=== PATIENT | male | born 1935 | race Hispanic/Latino ===

== ENCOUNTER 2018-07-20 12:50 | Inpatient (IN) | payer OTHER ==
[~2018-07-20] VITALS: Ht 170.2 cm; Wt 90.3 kg
[2018-07-20 13:22] LABS: BASOPHILS % (AUTO) 0.6 % (0.0-5.0); EOSINOPHILS % (AUTO) 1.6 % (0.0-8.0); HEMATOCRIT 23.3 % (42-54); LYMPHOCYTES % (AUTO) 7.5 % (21.0-51.0); MEAN CORPUSCULAR HEMOGLOBIN 31.3 pg (27.0-33.0); MEAN CORPUSCULAR HGB CONC 33.2 g/dL (32.0-36.0); MEAN CORPUSCULAR VOLUME 94.1 fL (79-99); NEUTROPHILS % (AUTO) 82.3 % (40.0-77.0); PLATELET COUNT (AUTO) 157 K/uL (130-400); RED BLOOD CELL COUNT(AUTO) 2.48 MIL/uL (4.50-6.20); RED CELL DISTRIBUTION WIDTH 15.5 % (11.0-15.5); WHITE BLOOD COUNT (AUTO) 11.5 K/uL (4.8-10.8)
[2018-07-20 13:41] LABS: POTASSIUM 4.6 mmol/L (3.5-5.1)
[2018-07-20 13:42] LABS: ALBUMIN 2.6 g/dL (3.5-5.0); BILIRUBIN,TOTAL 0.4 mg/dL (0.2-1.0); CREATININE 2.1 mg/dL (0.5-1.5); TOTAL PROTEIN, SERUM 7.1 g/dL (6.0-8.3)
[2018-07-20 13:52] LABS: INR 1.05 (0.85-1.15); PARTIAL THROMBOPLASTIN TIME 33.4 SEC (26.3-35.5)
[2018-07-20 14:02] LABS: B-TYPE NATRIURETIC PEPTIDE 1520 pg/mL (0-100)
[2018-07-20] MEDS ORDERED: MORPHINE SULFATE 2 MG/ML 1ML SYG IVP PRN (14:45)
[2018-07-20] MEDS ORDERED: NITROGLYCERIN 0.2 MG/HR PATCH TD SCH (14:45)
[2018-07-20] MEDS ORDERED: HYDROCODONE/ACETAMINOPHEN 5/325 MG TAB PO PRN (15:30)
[2018-07-20] MEDS ORDERED: ACETAMINOPHEN 325 MG TAB PO PRN (16:00)
[2018-07-20] MEDS ORDERED: FUROSEMIDE 10 MG/ML 2ML VIAL IV SCH (16:00)
[2018-07-20] MEDS ORDERED: ONDANSETRON HCL MDV 20ML 2 MG/ML VIAL IVP PRN (16:00)
[2018-07-20] MEDS ORDERED: GUAIFENESIN-DM 200/20 MG 10 ML PO SCH (16:00)
[2018-07-20] MEDS: IPRATROPIUM/ALBUTEROL SULFATE 3 ML SOLUTION IH SCH ×2 (17:26→23:14)
[2018-07-20 18:45] VITALS: BP 109/62
[2018-07-20 19:00] VITALS: BP 109/62
[2018-07-20 20:00] VITALS: BP 111/53
[2018-07-20 21:00] VITALS: BP 117/59
[2018-07-20 22:00] VITALS: BP 125/53
[2018-07-20 23:00] VITALS: BP 108/57
[2018-07-20] MEDS ORDERED: METOPROLOL TARTRATE 25 MG TAB ONE (23:16)
[2018-07-20] MEDS ORDERED: FUROSEMIDE 10 MG/ML 4ML VIAL ONE (23:17)
[2018-07-20] MEDS: CEFTRIAXONE SODIUM 1 GM IV SCH (23:26)
[2018-07-21] VITALS (17 sets, daily range): BP systolic 117–148; BP diastolic 62–90
[2018-07-21] MEDS ORDERED: ENOXAPARIN SODIUM 100 MG/1 ML SQ ONE (00:03)
[2018-07-21 03:23] LABS: BASOPHILS % (AUTO) 0.5 % (0.0-5.0); EOSINOPHILS % (AUTO) 1.9 % (0.0-8.0); HEMATOCRIT 25.6 % (42-54); LYMPHOCYTES % (AUTO) 7.3 % (21.0-51.0); MEAN CORPUSCULAR HEMOGLOBIN 31.2 pg (27.0-33.0); MEAN CORPUSCULAR HGB CONC 33.4 g/dL (32.0-36.0); MEAN CORPUSCULAR VOLUME 93.4 fL (79-99); MONOCYTES % (AUTO) 7.9 % (3.0-13.0); NEUTROPHILS % (AUTO) 82.4 % (40.0-77.0); PLATELET COUNT (AUTO) 173 K/uL (130-400); RED BLOOD CELL COUNT(AUTO) 2.74 MIL/uL (4.50-6.20); RED CELL DISTRIBUTION WIDTH 15.8 % (11.0-15.5); WHITE BLOOD COUNT (AUTO) 11.7 K/uL (4.8-10.8)
[2018-07-21 03:45] LABS: ALBUMIN 2.7 g/dL (3.5-5.0); BILIRUBIN,TOTAL 0.4 mg/dL (0.2-1.0); CREATININE 1.7 mg/dL (0.5-1.5); POTASSIUM 4.3 mmol/L (3.5-5.1); TOTAL PROTEIN, SERUM 7.7 g/dL (6.0-8.3)
[2018-07-21] MEDS ORDERED: FUROSEMIDE 10 MG/ML 4ML VIAL IV SCH (06:00)
[2018-07-21] MEDS: GUAIFENESIN-DM 200/20 MG 10 ML PO PRN (06:16)
[2018-07-21] MEDS: IPRATROPIUM/ALBUTEROL SULFATE 3 ML SOLUTION IH SCH ×4 (06:58→23:09)
[2018-07-21] MEDS ORDERED: ENOXAPARIN SODIUM 40 MG/0.4 ML SYRINGE SQ SCH (09:00)
[2018-07-21] MEDS: PANTOPRAZOLE SODIUM 40 MG TABLET.DR PO SCH (09:16)
[2018-07-21] MEDS: ENOXAPARIN SODIUM 100 MG/1 ML SQ SCH (09:17)
[2018-07-21] MEDS: FUROSEMIDE 10 MG/ML 4ML VIAL IV SCH ×2 (10:57→20:47)
[2018-07-21] MEDS ORDERED: CARV12.511 PO (12:40)
[2018-07-21] MEDS ORDERED: SIMV20TA6 PO (12:40)
[2018-07-21] MEDS ORDERED: VITS1TAB3 PO (12:40)
[2018-07-21] MEDS ORDERED: AMLO5TAB7 PO (12:40)
[2018-07-21] MEDS ORDERED: CARB1DRO4 OP (12:40)
[2018-07-21] MEDS ORDERED: FERG325 PO (12:40)
[2018-07-21] MEDS ORDERED: GLIP10TA9 PO (12:40)
[2018-07-21] MEDS ORDERED: FURO20TA4 PO (12:40)
[2018-07-21] MEDS ORDERED: AQUAOINT TP (12:40)
[2018-07-21] MEDS ORDERED: METF-446 PO (12:40)
[2018-07-21] MEDS ORDERED: INSU100V12 SQ ×2 (12:40)
[2018-07-21] MEDS ORDERED: LISI-613 PO (12:40)
[2018-07-21] MEDS ORDERED: ACETYLCYSTEINE 20% 200MG/ML 4ML VIAL PO SCH ×2 (15:00→17:02)
[2018-07-21] MEDS: CEFTRIAXONE SODIUM 1 GM IV SCH (16:53)
[2018-07-21] MEDS: ACETYLCYSTEINE 20% 200MG/ML 4ML VIAL PO SCH (17:54)
[2018-07-21] MEDS: METOPROLOL TARTRATE 50 MG TAB PO SCH (20:47)
[2018-07-22 04:02] VITALS: BP 113/62
[2018-07-22 04:04] LABS: HEMATOCRIT 25.6 % (42-54); MEAN CORPUSCULAR HEMOGLOBIN 31.5 pg (27.0-33.0); MEAN CORPUSCULAR HGB CONC 34.3 g/dL (32.0-36.0); MEAN CORPUSCULAR VOLUME 91.9 fL (79-99); PLATELET COUNT (AUTO) 209 K/uL (130-400); RED BLOOD CELL COUNT(AUTO) 2.78 MIL/uL (4.50-6.20); RED CELL DISTRIBUTION WIDTH 15.1 % (11.0-15.5); WHITE BLOOD COUNT (AUTO) 10.5 K/uL (4.8-10.8)
[2018-07-22 04:13] LABS: B-TYPE NATRIURETIC PEPTIDE 2430 pg/mL (0-100)
[2018-07-22 04:19] LABS: CREATININE 1.7 mg/dL (0.5-1.5); POTASSIUM 4.2 mmol/L (3.5-5.1)
[2018-07-22] MEDS: IPRATROPIUM/ALBUTEROL SULFATE 3 ML SOLUTION IH SCH ×3 (06:00→17:51)
[2018-07-22] MEDS: ACETYLCYSTEINE 20% 200MG/ML 4ML VIAL PO SCH ×3 (06:00→17:28)
[2018-07-22] MEDS: INSULIN HUMULIN R 100 UNIT/ML 3ML SQ SCH ×4 (06:33→20:14)
[2018-07-22 07:39] VITALS: BP 111/67
[2018-07-22] MEDS: PANTOPRAZOLE SODIUM 40 MG TABLET.DR PO SCH (07:45)
[2018-07-22] MEDS: FUROSEMIDE 10 MG/ML 4ML VIAL IV SCH (09:12)
[2018-07-22] MEDS: METOPROLOL TARTRATE 50 MG TAB PO SCH (09:12)
[2018-07-22] MEDS: ENOXAPARIN SODIUM 100 MG/1 ML SQ SCH (09:13)
[2018-07-22] MEDS: BENZONATATE 100 MG CAPSULE PO SCH ×2 (10:06→17:28)
[2018-07-22 11:35] VITALS: BP 120/67
[2018-07-22] MEDS: MILRINONE-D5W 20 MG/100 ML 100 ML IV SCH (12:13)
[2018-07-22] MEDS: CEFTRIAXONE SODIUM 1 GM IV SCH (16:14)
[2018-07-22 16:35] VITALS: BP 120/71
[2018-07-22 19:29] VITALS: BP 118/66
[2018-07-22] MEDS: SIMVASTATIN 20 MG TABLET PO SCH (20:06)
[2018-07-22] MEDS: CARVEDILOL 6.25 MG TABLET PO SCH (20:07)
[2018-07-22] MEDS: GUAIFENESIN-DM 200/20 MG 10 ML PO PRN (20:07)
[2018-07-23] VITALS (7 sets, daily range): BP systolic 104–122; BP diastolic 58–68
[2018-07-23] MEDS: BENZONATATE 100 MG CAPSULE PO SCH ×3 (01:15→17:16)
[2018-07-23] MEDS: MILRINONE-D5W 20 MG/100 ML 100 ML IV SCH ×2 (04:59→21:22)
[2018-07-23] MEDS: ACETYLCYSTEINE 20% 200MG/ML 4ML VIAL PO SCH ×4 (05:00→17:59)
[2018-07-23] MEDS: INSULIN HUMULIN R 100 UNIT/ML 3ML SQ SCH ×4 (05:52→20:51)
[2018-07-23] MEDS: IPRATROPIUM/ALBUTEROL SULFATE 3 ML SOLUTION IH SCH ×5 (06:01→23:33)
[2018-07-23 06:19] LABS: CREATININE 1.5 mg/dL (0.5-1.5); POTASSIUM 3.5 mmol/L (3.5-5.1)
[2018-07-23] MEDS: PANTOPRAZOLE SODIUM 40 MG TABLET.DR PO SCH (07:37)
[2018-07-23] MEDS: ASPIRIN 81MG TAB.CHEW PO SCH (08:54)
[2018-07-23] MEDS: CLOPIDOGREL BISULFATE 75 MG TAB PO SCH (08:54)
[2018-07-23] MEDS: CARVEDILOL 6.25 MG TABLET PO SCH ×2 (08:55→20:24)
[2018-07-23] MEDS: FUROSEMIDE 10 MG/ML 2ML VIAL IV SCH (08:55)
[2018-07-23] MEDS: ENOXAPARIN SODIUM 100 MG/1 ML SQ SCH (08:56)
[2018-07-23 10:22] LABS: BASOPHILS % (AUTO) 0.9 % (0.0-5.0); EOSINOPHILS % (AUTO) 4.5 % (0.0-8.0); HEMATOCRIT 25.8 % (42-54); LYMPHOCYTES % (AUTO) 15.2 % (21.0-51.0); MEAN CORPUSCULAR HEMOGLOBIN 30.5 pg (27.0-33.0); MEAN CORPUSCULAR HGB CONC 32.7 g/dL (32.0-36.0); MEAN CORPUSCULAR VOLUME 93.2 fL (79-99); MONOCYTES % (AUTO) 11.9 % (3.0-13.0); NEUTROPHILS % (AUTO) 67.5 % (40.0-77.0); NUCLEATED RED BLOOD CELLS 0.1 % (0.0-0.19); PLATELET COUNT (AUTO) 212 K/uL (130-400); RED BLOOD CELL COUNT(AUTO) 2.77 MIL/uL (4.50-6.20); RED CELL DISTRIBUTION WIDTH 15.3 % (11.0-15.5); WHITE BLOOD COUNT (AUTO) 9.3 K/uL (4.8-10.8)
[2018-07-23 10:53] LABS: ALBUMIN 2.6 g/dL (3.5-5.0); BILIRUBIN,DIRECT 0.1 mg/dL (0.0-0.3); BILIRUBIN,TOTAL 0.3 mg/dL (0.2-1.0); TOTAL PROTEIN, SERUM 7.5 g/dL (6.0-8.3)
[2018-07-23] MEDS: CEFTRIAXONE SODIUM 1 GM IV SCH (15:55)
[2018-07-23] MEDS: SIMVASTATIN 20 MG TABLET PO SCH (20:23)
[2018-07-24] MEDS: ACETYLCYSTEINE 20% 200MG/ML 4ML VIAL PO SCH ×2 (00:20→05:46)
[2018-07-24] MEDS: BENZONATATE 100 MG CAPSULE PO SCH ×3 (00:20→17:15)
[2018-07-24 03:39] LABS: BASOPHILS % (AUTO) 0.8 % (0.0-5.0); EOSINOPHILS % (AUTO) 5.2 % (0.0-8.0); HEMATOCRIT 23.6 % (42-54); LYMPHOCYTES % (AUTO) 14.2 % (21.0-51.0); MEAN CORPUSCULAR HEMOGLOBIN 31.1 pg (27.0-33.0); MEAN CORPUSCULAR HGB CONC 33.8 g/dL (32.0-36.0); MEAN CORPUSCULAR VOLUME 91.9 fL (79-99); MONOCYTES % (AUTO) 10.5 % (3.0-13.0); NEUTROPHILS % (AUTO) 69.3 % (40.0-77.0); PLATELET COUNT (AUTO) 243 K/uL (130-400); RED BLOOD CELL COUNT(AUTO) 2.57 MIL/uL (4.50-6.20); RED CELL DISTRIBUTION WIDTH 14.8 % (11.0-15.5); WHITE BLOOD COUNT (AUTO) 8.8 K/uL (4.8-10.8)
[2018-07-24 03:52] LABS: CREATININE 1.4 mg/dL (0.5-1.5); POTASSIUM 3.4 mmol/L (3.5-5.1)
[2018-07-24 04:04] VITALS: BP 122/74
[2018-07-24] MEDS: INSULIN HUMULIN R 100 UNIT/ML 3ML SQ SCH ×4 (05:44→21:24)
[2018-07-24] MEDS: PANTOPRAZOLE SODIUM 40 MG TABLET.DR PO SCH (05:46)
[2018-07-24] MEDS: IPRATROPIUM/ALBUTEROL SULFATE 3 ML SOLUTION IH SCH ×4 (06:15→23:50)
[2018-07-24 07:00] VITALS: BP 112/57
[2018-07-24] MEDS: FUROSEMIDE 10 MG/ML 2ML VIAL IV SCH (08:46)
[2018-07-24] MEDS: ASPIRIN 81MG TAB.CHEW PO SCH (08:46)
[2018-07-24] MEDS: CLOPIDOGREL BISULFATE 75 MG TAB PO SCH (08:46)
[2018-07-24] MEDS: CARVEDILOL 6.25 MG TABLET PO SCH ×2 (08:46→21:11)
[2018-07-24] MEDS: ENOXAPARIN SODIUM 100 MG/1 ML SQ SCH (09:56)
[2018-07-24 11:00] VITALS: BP 156/64
[2018-07-24 16:00] VITALS: BP 111/63
[2018-07-24] MEDS: CEFTRIAXONE SODIUM 1 GM IV SCH (16:19)
[2018-07-24 19:33] VITALS: BP 116/55
[2018-07-24] MEDS: ACETYLCYSTEINE 600 MG CAPSULE PO SCH (19:38)
[2018-07-24] MEDS: SIMVASTATIN 20 MG TABLET PO SCH (21:11)
[2018-07-24 23:45] VITALS: BP 119/60
[2018-07-25] MEDS: ACETYLCYSTEINE 600 MG CAPSULE PO SCH ×2 (00:51→06:27)
[2018-07-25] MEDS: BENZONATATE 100 MG CAPSULE PO SCH ×3 (00:51→18:23)
[2018-07-25 03:49] LABS: EOSINOPHILS % (AUTO) 5.5 % (0.0-8.0); LYMPHOCYTES % (AUTO) 16.3 % (21.0-51.0); MEAN CORPUSCULAR HGB CONC 33.8 g/dL (32.0-36.0); MEAN CORPUSCULAR VOLUME 91.7 fL (79-99); MONOCYTES % (AUTO) 9.4 % (3.0-13.0); NEUTROPHILS % (AUTO) 67.8 % (40.0-77.0); PLATELET COUNT (AUTO) 272 K/uL (130-400); RED BLOOD CELL COUNT(AUTO) 2.62 MIL/uL (4.50-6.20); RED CELL DISTRIBUTION WIDTH 14.9 % (11.0-15.5)
[2018-07-25 03:59] LABS: CREATININE 1.5 mg/dL (0.5-1.5); POTASSIUM 3.8 mmol/L (3.5-5.1)
[2018-07-25 04:00] VITALS: BP 116/65
[2018-07-25] MEDS: MILRINONE-D5W 20 MG/100 ML 100 ML IV SCH ×2 (04:11→18:25)
[2018-07-25] MEDS: INSULIN HUMULIN R 100 UNIT/ML 3ML SQ SCH ×4 (06:16→21:31)
[2018-07-25] MEDS: IPRATROPIUM/ALBUTEROL SULFATE 3 ML SOLUTION IH SCH ×4 (06:48→23:21)
[2018-07-25 07:00] VITALS: BP 109/52
[2018-07-25] MEDS ORDERED: ENOXAPARIN SODIUM 100 MG/1 ML SQ SCH (09:00)
[2018-07-25] MEDS: ASPIRIN 81MG TAB.CHEW PO SCH (09:05)
[2018-07-25] MEDS: FUROSEMIDE 10 MG/ML 2ML VIAL IV SCH ×2 (09:06→18:24)
[2018-07-25] MEDS: PANTOPRAZOLE SODIUM 40 MG TABLET.DR PO SCH (09:06)
[2018-07-25] MEDS: CARVEDILOL 6.25 MG TABLET PO SCH ×2 (09:06→21:27)
[2018-07-25] MEDS: CLOPIDOGREL BISULFATE 75 MG TAB PO SCH (09:06)
[2018-07-25 11:00] VITALS: BP 115/64
[2018-07-25 16:00] VITALS: BP 131/82
[2018-07-25] MEDS: CEFTRIAXONE SODIUM 1 GM IV SCH (18:23)
[2018-07-25 19:47] VITALS: BP 110/58
[2018-07-25] MEDS: SIMVASTATIN 20 MG TABLET PO SCH (21:26)
[2018-07-25 23:50] VITALS: BP 123/73
[2018-07-26] VITALS (7 sets, daily range): BP systolic 110–134; BP diastolic 52–80
[2018-07-26] MEDS: BENZONATATE 100 MG CAPSULE PO SCH ×3 (00:26→16:56)
[2018-07-26 04:10] LABS: BASOPHILS % (AUTO) 1.2 % (0.0-5.0); EOSINOPHILS % (AUTO) 5.1 % (0.0-8.0); HEMATOCRIT 24.2 % (42-54); LYMPHOCYTES % (AUTO) 16.4 % (21.0-51.0); MEAN CORPUSCULAR HEMOGLOBIN 31.2 pg (27.0-33.0); MEAN CORPUSCULAR HGB CONC 33.9 g/dL (32.0-36.0); MEAN CORPUSCULAR VOLUME 91.9 fL (79-99); MONOCYTES % (AUTO) 9.3 % (3.0-13.0); NUCLEATED RED BLOOD CELLS 0.1 % (0.0-0.19); PLATELET COUNT (AUTO) 289 K/uL (130-400); RED BLOOD CELL COUNT(AUTO) 2.64 MIL/uL (4.50-6.20); RED CELL DISTRIBUTION WIDTH 14.7 % (11.0-15.5); WHITE BLOOD COUNT (AUTO) 8.5 K/uL (4.8-10.8)
[2018-07-26 04:19] LABS: CREATININE 1.3 mg/dL (0.5-1.5); POTASSIUM 3.7 mmol/L (3.5-5.1)
[2018-07-26 04:23] LABS: B-TYPE NATRIURETIC PEPTIDE 1380 pg/mL (0-100)
[2018-07-26] MEDS: IPRATROPIUM/ALBUTEROL SULFATE 3 ML SOLUTION IH SCH ×4 (06:09→23:15)
[2018-07-26] MEDS: FUROSEMIDE 10 MG/ML 2ML VIAL IV SCH (06:13)
[2018-07-26] MEDS: INSULIN HUMULIN R 100 UNIT/ML 3ML SQ SCH ×4 (06:13→23:02)
[2018-07-26] MEDS: PANTOPRAZOLE SODIUM 40 MG TABLET.DR PO SCH (06:13)
[2018-07-26] MEDS: ASPIRIN 81MG TAB.CHEW PO SCH (08:06)
[2018-07-26] MEDS: CLOPIDOGREL BISULFATE 75 MG TAB PO SCH (08:07)
[2018-07-26] MEDS: FUROSEMIDE 40 MG TABLET PO SCH ×2 (08:07→16:56)
[2018-07-26] MEDS: CARVEDILOL 6.25 MG TABLET PO SCH ×2 (08:07→20:20)
[2018-07-26] MEDS: ENOXAPARIN SODIUM 40 MG/0.4 ML SYRINGE SQ SCH (08:08)
[2018-07-26] MEDS: CEFTRIAXONE SODIUM 1 GM IV SCH (14:50)
[2018-07-26] MEDS: SIMVASTATIN 20 MG TABLET PO SCH (20:20)
[2018-07-27] MEDS: BENZONATATE 100 MG CAPSULE PO SCH ×4 (02:48→23:42)
[2018-07-27 03:33] VITALS: BP 119/67
[2018-07-27 04:07] LABS: BASOPHILS % (AUTO) 1.5 % (0.0-5.0); EOSINOPHILS % (AUTO) 4.4 % (0.0-8.0); HEMATOCRIT 25.6 % (42-54); LYMPHOCYTES % (AUTO) 18.1 % (21.0-51.0); MEAN CORPUSCULAR HGB CONC 33.8 g/dL (32.0-36.0); MEAN CORPUSCULAR VOLUME 91.8 fL (79-99); NUCLEATED RED BLOOD CELLS 0.1 % (0.0-0.19); PLATELET COUNT (AUTO) 321 K/uL (130-400); RED BLOOD CELL COUNT(AUTO) 2.79 MIL/uL (4.50-6.20); RED CELL DISTRIBUTION WIDTH 15.1 % (11.0-15.5); WHITE BLOOD COUNT (AUTO) 9.2 K/uL (4.8-10.8)
[2018-07-27 04:12] LABS: CREATININE 1.5 mg/dL (0.5-1.5); POTASSIUM 3.5 mmol/L (3.5-5.1)
[2018-07-27 04:28] LABS: B-TYPE NATRIURETIC PEPTIDE 2500 pg/mL (0-100)
[2018-07-27] MEDS: INSULIN HUMULIN R 100 UNIT/ML 3ML SQ SCH ×2 (06:14→11:12)
[2018-07-27] MEDS: PANTOPRAZOLE SODIUM 40 MG TABLET.DR PO SCH (06:26)
[2018-07-27] MEDS: IPRATROPIUM/ALBUTEROL SULFATE 3 ML SOLUTION IH SCH ×4 (07:05→23:22)
[2018-07-27] MEDS: ASPIRIN 81MG TAB.CHEW PO SCH (07:37)
[2018-07-27] MEDS: CARVEDILOL 6.25 MG TABLET PO SCH ×2 (07:37→20:48)
[2018-07-27] MEDS: CLOPIDOGREL BISULFATE 75 MG TAB PO SCH (07:37)
[2018-07-27] MEDS: ENOXAPARIN SODIUM 40 MG/0.4 ML SYRINGE SQ SCH (07:38)
[2018-07-27] MEDS: FUROSEMIDE 10 MG/ML 2ML VIAL IV SCH ×2 (07:38→19:54)
[2018-07-27 07:44] VITALS: BP 131/65
[2018-07-27 11:00] VITALS: BP 113/56
[2018-07-27] MEDS ORDERED: LACTULOSE 20 GM/30 ML UDCUP PO PRN (11:15)
[2018-07-27] MEDS: CEFTRIAXONE SODIUM 1 GM IV SCH (13:20)
[2018-07-27] MEDS: INSULIN LISPRO 100 UNIT/ML 3ML SQ SCH (16:11)
[2018-07-27 16:21] VITALS: BP 124/60
[2018-07-27 18:59] VITALS: BP 114/61
[2018-07-27] MEDS: SIMVASTATIN 20 MG TABLET PO SCH (20:48)
[2018-07-27] MEDS ORDERED: INSULIN GLARGINE 100 UNITS/ML 10 ML VIAL SQ SCH (21:00)
[2018-07-27 23:05] VITALS: BP 113/75
[2018-07-28 03:09] VITALS: BP 130/64
[2018-07-28 03:51] LABS: HEMATOCRIT 27.2 % (42-54); MEAN CORPUSCULAR HEMOGLOBIN 31.2 pg (27.0-33.0); MEAN CORPUSCULAR HGB CONC 34.2 g/dL (32.0-36.0); MEAN CORPUSCULAR VOLUME 91.2 fL (79-99); PLATELET COUNT (AUTO) 339 K/uL (130-400); RED BLOOD CELL COUNT(AUTO) 2.98 MIL/uL (4.50-6.20); RED CELL DISTRIBUTION WIDTH 15.4 % (11.0-15.5); WHITE BLOOD COUNT (AUTO) 8.4 K/uL (4.8-10.8)
[2018-07-28 03:58] LABS: CREATININE 1.4 mg/dL (0.5-1.5)
[2018-07-28 04:13] LABS: B-TYPE NATRIURETIC PEPTIDE 2260 pg/mL (0-100)
[2018-07-28] MEDS: FUROSEMIDE 10 MG/ML 2ML VIAL IV SCH (06:25)
[2018-07-28] MEDS: PANTOPRAZOLE SODIUM 40 MG TABLET.DR PO SCH (06:25)
[2018-07-28] MEDS: INSULIN LISPRO 100 UNIT/ML 3ML SQ SCH (06:30)
[2018-07-28] MEDS: IPRATROPIUM/ALBUTEROL SULFATE 3 ML SOLUTION IH SCH (06:48)
[2018-07-28 07:39] VITALS: BP 125/70
[2018-07-28] MEDS ORDERED: ASPI-1005 PO (07:43)
[2018-07-28] MEDS ORDERED: CLOP75TA14 PO (07:43)
[2018-07-28] MEDS ORDERED: FURO40TA5 PO (07:43)
[2018-07-28] MEDS: CARVEDILOL 6.25 MG TABLET PO SCH (08:43)
[2018-07-28] MEDS: BENZONATATE 100 MG CAPSULE PO SCH (08:43)
[2018-07-28] MEDS: ASPIRIN 81MG TAB.CHEW PO SCH (08:43)
[2018-07-28] MEDS: CLOPIDOGREL BISULFATE 75 MG TAB PO SCH (08:43)
[2018-07-28] MEDS: ENOXAPARIN SODIUM 40 MG/0.4 ML SYRINGE SQ SCH (08:44)
[2018-07-28] MEDS ORDERED: FUROSEMIDE 40 MG TABLET PO SCH (09:00)
[2018-07-28] MEDS ORDERED: INSULIN LISPRO 100 UNIT/ML 3ML SQ SCH (11:30)
[2018-07-28 11:36] VITALS: BP 129/64
[2018-07-28] MEDS ORDERED: INSULIN GLARGINE 100 UNITS/ML 10 ML VIAL SQ SCH (21:00)
== END 2018-07-28 13:08 | disposition home or self-care (01) | DRG 280 ==
LOC: EDH 12:50 → EDHIP 15:21 → 2CH 19:35 → 2DH 07-21 15:15
PROVIDERS: ADMIT Hospitalist; ATTEND Hospitalist
DX: I21.4 Non-ST elevation (NSTEMI) myocardial infarction (principal); J96.90 Respiratory failure, unspecified, unspecified whether with hypoxia or hypercapnia; I50.43 Acute on chronic combined systolic (congestive) and diastolic (congestive) heart failure; I13.0 Hypertensive heart and chronic kidney disease with heart failure and stage 1 through stage 4 chronic kidney disease, or unspecified chronic kidney disease; N17.9 Acute kidney failure, unspecified; M94.0 Chondrocostal junction syndrome [Tietze]; I25.10 Atherosclerotic heart disease of native coronary artery without angina pectoris; D63.1 Anemia in chronic kidney disease; N18.3 Chronic kidney disease, stage 3 (moderate); E11.22 Type 2 diabetes mellitus with diabetic chronic kidney disease; E11.51 Type 2 diabetes mellitus with diabetic peripheral angiopathy without gangrene; E11.65 Type 2 diabetes mellitus with hyperglycemia; E11.21 Type 2 diabetes mellitus with diabetic nephropathy; E66.9 Obesity, unspecified; E78.5 Hyperlipidemia, unspecified; I25.5 Ischemic cardiomyopathy; D72.829 Elevated white blood cell count, unspecified; E78.2 Mixed hyperlipidemia; G47.00 Insomnia, unspecified; I35.0 Nonrheumatic aortic (valve) stenosis; K59.00 Constipation, unspecified; Z68.31 Body mass index [BMI] 31.0-31.9, adult; I25.2 Old myocardial infarction; Z79.02 Long term (current) use of antithrombotics/antiplatelets; Z79.82 Long term (current) use of aspirin; Z79.899 Other long term (current) drug therapy; Z87.891 Personal history of nicotine dependence; Z95.5 Presence of coronary angioplasty implant and graft; Z95.810 Presence of automatic (implantable) cardiac defibrillator; Z91.14 Patient's other noncompliance with medication regimen
CPT/HCPCS: 36415; 71045; 80048; 80053; 80076; 82550; 82948; 83880; 84484; 85025; 85027; 85610; 85730; 93005; 94640; 94664; 99291; A4218; J0696; J1650; J1815; J1940; J2260; J7608

== ENCOUNTER 2021-10-09 05:53 | Day surgery (SDC) | payer OTHER ==
[2021-10-07 16:37] LABS: BASOPHILS % (AUTO) 0.7 % (0.0-5.0); EOSINOPHILS % (AUTO) 2.9 % (0.0-8.0); HEMATOCRIT 33.7 % (42-54); LYMPHOCYTES % (AUTO) 13.1 % (21.0-51.0); MEAN CORPUSCULAR HEMOGLOBIN 31.4 pg (27.0-33.0); MEAN CORPUSCULAR HGB CONC 32.9 g/dL (32.0-36.0); MEAN CORPUSCULAR VOLUME 95.2 fL (79-99); MONOCYTES % (AUTO) 10.1 % (3.0-13.0); NEUTROPHILS % (AUTO) 72.8 % (40.0-77.0); PLATELET COUNT (AUTO) 198 K/uL (130-400); RED BLOOD CELL COUNT(AUTO) 3.54 MIL/uL (4.50-6.20); RED CELL DISTRIBUTION WIDTH 14.6 % (11.0-15.5); WHITE BLOOD COUNT (AUTO) 8.3 K/uL (4.8-10.8)
[2021-10-07 16:50] LABS: INR 1.05 (0.85-1.15); PROTHROMBIN TIME 11.4 SEC (9.6-11.6)
[2021-10-07 16:51] LABS: CREATININE 1.6 mg/dL (0.5-1.5); POTASSIUM 4.3 mmol/L (3.5-5.1)
[2021-10-07 16:52] LABS: PARTIAL THROMBOPLASTIN TIME 27.5 SEC (26.3-35.5)
[2021-10-08 12:28] VITALS: BP 133/60
[2021-10-09] VITALS (11 sets, daily range): BP systolic 103–130; BP diastolic 44–74
[~2021-10-09] VITALS: Ht 167.6 cm; Wt 82.3 kg
[~2021-10-09 05:53] MED LIST: AEC81 PO; CARV25TA PO; FERR324T17 PO; FURO40TA5 PO; INSLAN SQ; LOSA25TA41 PO; METO2.5T2 PO; PRAV40TA3 PO; VITS1TAB3 PO
[2021-10-09] MEDS ORDERED: 0.9%NACL 1000ML 1,000 ML IV ONE (06:08)
[2021-10-09] MEDS ORDERED: LIDOCAINE HCL 1% 20 ML VIAL ONE (09:26)
[2021-10-09] MEDS ORDERED: MEPERIDINE-PF 50 MG/ML SYG ONE (09:26)
[2021-10-09] MEDS ORDERED: CEFAZOLIN SODIUM 1 GM VIAL ONE (09:26)
[2021-10-09] MEDS ORDERED: MIDAZOLAM HCL 1 MG/ML 2ML VIAL ONE ×2 (09:26→09:48)
[2021-10-09] MEDS ORDERED: BUPIVACAINE/PF 0.25% 30ML VIAL IJ ONE (09:26)
[2021-10-09] MEDS ORDERED: OCTYL 2-CYANOACRYLATE 1 EACH TP ONE (10:29)
[2021-10-09] MEDS ORDERED: GLUCAGON 1MG KIT 1 MG ML IM PRN (10:30)
[2021-10-09] MEDS ORDERED: ONDANSETRON 4MG INJ IV PRN (10:30)
[2021-10-09] MEDS ORDERED: DEXTROSE 50%-WATER 50 ML DISP.SYRIN IV PRN (10:30)
[2021-10-09] MEDS ORDERED: ACETAMINOPHEN 325 MG TAB PO PRN ×2 (10:30)
[2021-10-09] MEDS ORDERED: INSULIN HUMULIN R 100 UNIT/ML 3ML SQ SCH (11:30)
[2021-10-09] MEDS ORDERED: 0.9%NACL 1000ML 1,000 ML IV SCH (12:00)
[2021-10-09] MEDS ORDERED: CEFAZOLIN SODIUM 1 GM VIAL IVP SCH (16:30)
== END 2021-10-09 16:35 | disposition home or self-care (01) ==
LOC: DAH 05:53
PROVIDERS: ATTEND Internal Medicine Cardiovascular Disease
DX: I25.5 Ischemic cardiomyopathy (principal); I11.0 Hypertensive heart disease with heart failure; I50.42 Chronic combined systolic (congestive) and diastolic (congestive) heart failure; I25.10 Atherosclerotic heart disease of native coronary artery without angina pectoris; E11.9 Type 2 diabetes mellitus without complications; E78.5 Hyperlipidemia, unspecified; I25.2 Old myocardial infarction; E66.9 Obesity, unspecified; Z79.82 Long term (current) use of aspirin; Z79.4 Long term (current) use of insulin; Z79.01 Long term (current) use of anticoagulants; Z79.899 Other long term (current) drug therapy
CPT/HCPCS: 33264; 36415; 80048; 82948 ×2; 85025; 85610; 85730; 93005; 96374; A4215; A4216 ×2; A4221; A4222; A4223 ×3; A4606; A4657; A4663; C1882; J0690 ×2; J2175; J2250 ×2; J3490; J7030; 99156; 99157